=== PATIENT | male | born 1970 | race Caucasian/White ===

== ENCOUNTER → 2024-01-01 06:24 | Day surgery (SDC) | payer OTHER, SELFPAY | LOC: GI 06:24 | PROVIDERS: ATTENDING PHYSICIAN Internal Medicine | DX: Z12.11 Encounter for screening for malignant neoplasm of colon (principal); Z86.010 Personal history of colon polyps; K64.8 Other hemorrhoids; K64.4 Residual hemorrhoidal skin tags; K57.30 Diverticulosis of large intestine without perforation or abscess without bleeding; D12.3 Benign neoplasm of transverse colon | CPT/HCPCS: 45385; 88305 ==

== ENCOUNTER 2024-06-06 21:24 | Emergency (ER) | payer OTHER, SELFPAY ==
[2024-06-06 21:26] VITALS: BP 138/86
--- NOTE | 2024-06-06 22:26 | ED.GENMED ---
History of Present Illness
General
Chief Complaint: Skin Problem
Source: patient
Exam Limitations: none
Time Seen by Provider: 06/06/24 22:08
Nursing documentation reviewed up to this point in time: agreed with
History of Present Illness
History of Present Illness:
Patient to ED with complaint of pain redness and swelling to medial left thigh. Symptoms started approx 5 days ago. Denies fever/chills. No history of trauma. Brought to eD by spouse for eval
Past History
Past History
ED Past Medical History: Arrthythmia and HTN
ED Past Surgical History: Negative Brain or Cardiac
Social History
Tobacco: Non-smoker
Alcohol: None
Drug: None
Personal:
Living: with family
Employment: Employed
Family History
Family History: Hypertension
Review of Systems
Review of Systems
Allergies reviewed?: Yes
All Other Systems: ROS reviewed and negative except as documented in HPI and ROS
Constitutional: Reports no symptoms
EENT: Reports no symptoms
Respiratory: Reports no symptoms
Cardiac: Reports no symptoms
ABD/GI: Reports no symptoms
: Reports no symptoms
Musculoskeletal: Reports no symptoms
Skin: Reports other (Erythema, pain, swelling medial left thigh)
Neurological: Reports no symptoms
Psychiatric: Reports no symptoms
Phy Exam
General Physical Exam
General Presentation: well appearing and no apparent distress
General age: appears stated age
General Skin: warm and dry
General Habitus: normal
Musculoskeletal Exam
Musculoskeletal Exam: full ROM and neuro vasc intact
Skin Exam
Skin Exam: warm/dry and other (Erythema extending from left groin to distal medial thigh. Painful to touch. Cord palpated. No wounds)
Psychiatric Exam
Psychiatric Exam: normal mood/affect
Course
Orders/Labs/Results
Orders:
Orders
06/06/24 22:12
US Periph Venous LOWER Ext LT Urgent
Comment:
Reason For Exam: pain redness swelling medial left thigh
06/06/24 23:38
Complete Blood Count/With Diff Urgent
Comprehensive Metabolic Panel Urgent
06/07/24 00:01
Apixaban [Eliquis] 10 mg PO NOW STA
Abnormal Lab Results
06/06/24
23:38
RBC 4.53 L 10^6/uL
(4.70-6.10)
MCH 32.7 H pg
(27.0-31.0)
MPV 11.5 H fL
(7.4-10.4)
Absolute Monos (auto) 0.8 H 10^3/uL
(0.1-0.6)
Monocytes % 12.1 H %
(1.7-9.3)
06/06/24 23:38
06/06/24 23:38
Vital Signs
Initial and Last Documented VS:
Initial Vital Signs
Temp Pulse Resp BP Pulse Ox
98.2 F 94 22 138/86 96
06/06/24 21:26 06/06/24 21:26 06/06/24 21:26 06/06/24 21:26 06/06/24 21:26
Last Documented Vital Signs
Temp Pulse Resp BP Pulse Ox
98.2 F 94 22 138/86 96
06/06/24 21:26 06/06/24 21:26 06/06/24 21:26 06/06/24 21:26 06/06/24 21:26
*Radiology
Radiology exam reviewed: radiology read reviewed
*Pulse Oximetry
Patient hypoxic: no
*Critical Care Note
Total Time (30-74mins, 75-104mins- exclusive of procedures): Not Applicable
Update Note
Update Note:
Verbal report from night radiologist. 'Thrombus is seen throughout the left greater saphenous vein and extends within 3 mm of the saphenofemoral junction'. Due to proximity of thrombus to sophenofemoral junction will place on Eliquis. First dose
given in dept. He is discharged home and will follow up with PCP. Given instructions on s/s to return to ED and he is agreeable to plan.
ED Attending Note
-
Portions of this chart may have been created with voice recognition software.� Occasional wrong word or��sound alike� substitutions may have occurred due to the inherent limitations of voice recognition software.
Discharge Plan
Departure
Patient Disposition: Home (Routine Discharge)
Date of Disposition: 06/07/24
Time of Disposition: 00:04
Patient with high blood pressure during this ER visit?: No
Condition: Good
Covid-19: Not Applicable
Discharge Problem:
Thrombosis of left saphenous vein
Instructions: Apixaban, Deep Vein Thrombosis (DVT) ED
Prescriptions:
New
Eliquis DVT-PE Treat 30D Start 5 mg (74 tabs) tablets,dose pack
See Rx Instructions .ROUTE .COMPLEX Qty: 74 0RF
Rx Instructions:
orally per package directions
No Action
multivitamin Tablet
1 tab PO DAILY
amlodipine 5 mg Tablet
5 mg PO DAILY
losartan 100 mg Tablet
100 mg PO DAILY
acetaminophen [Tylenol Extra Strength] 500 mg tablet
1,000 mg PO Q6HPRN PRN (Reason: mild pain) Qty: 1 0RF
ibuprofen 200 mg tablet
400 - 600 mg PO Q6HPRN PRN (Reason: moderate pain) Qty: 1 0RF
oxycodone 5 mg tablet
5 mg PO Q4HPRN PRN (Reason: breakthrough/severe pain) Qty: 7 0RF
Referrals:
Federica Godoy MD [Family Provider] - Tomorrow
Activity Restrictions/Additional Instructions:
The blood clot in your leg is in a superficial vein, however it is very close to affecting the deep vein. To prevent a deep vein blood clot from forming I have prescribed Eliquis for you. YOu will take 10mg 2x day for 7 days, then 5mg daily.
Follow up with your family doctor in the AM. Return to the emergency department immediately for any SOB, CP/pressure, or for any further concerns.
Interventions
Interventions:
*Risk Screen - Suicide Last Done: 06/06/24 21:26
*General Assessment Last Done: 06/06/24 23:07
*Neglect/Abuse Screening Last Done: 06/06/24 21:26
ED- Fall Risk Assessment Last Done: 06/06/24 23:07
*ED COVID-19 Vaccine History Last Done: 06/06/24 23:07
*Nursing Disposition Last Done: 06/07/24 00:27
ED-Skin Assessment Last Done: 06/06/24 23:07
Discharge Date and Time
Discharge Date/Time: 06/07/24 00:28
Print Language: SENEGALESE
[2024-06-06 23:43] LABS: % Basophils 0.9 % (0-2); % Eosinophils 1.3 % (0-6); % Immature Granulocytes 0.3 % (0-0.5); % Lymphocytes 25.9 % (20.5-51.1); % Monocytes 12.1 % (1.7-9.3); % Neutrophils 59.5 % (42.2-75.2); Absolute Basophils 0.1 10^3/uL (0-0.2); Absolute Eosinophils 0.1 10^3/uL (0-0.7); Absolute Lymphocytes 1.7 10^3/uL (1.2-3.4); Absolute Monocytes 0.8 10^3/uL (0.1-0.6); Hematocrit 40.6 % (39.0-52.0); Hemoglobin 14.8 g/dL (13.0-18.0); Mean Corp Hgb Conc. 36.5 g/dL (33.0-37.0); Mean Corpuscular Hgb 32.7 pg (27.0-31.0); Mean Corpuscular Volume 89.6 fL (80.0-94.0); Mean Platelet Volume 11.5 fL (7.4-10.4); Nucleated Red Blood Cells % 0 % (-); Platelet Count 179 10^3/uL (130-400); Red Blood Cell Count 4.53 10^6/uL (4.70-6.10); Red Cell Dist. Width 13.8 % (11.5-14.5); White Blood Cell Count 6.7 10^3/uL (4.8-10.8)
[2024-06-07] LABS: ALT (SGPT) 25 U/L (0-50); AST (SGOT) 30 U/L (17-59); Albumin 4.1 g/dl (3.5-5.0); Alkaline Phosphatase 60 U/L (38-126); Blood Urea Nitrogen 18 mg/dl (9-20); Calcium 9.2 mg/dl (8.4-10.2); Carbon Dioxide 25 mmol/L (22-30); Chloride 105 mmol/L (98-107); Glucose 82 mg/dl (70-99); Potassium 3.7 mmol/L (3.5-5.1); Sodium 139 mmol/L (135-145); Total Bilirubin 0.7 mg/dl (0.2-1.3); Total Protein 6.5 g/dl (6.3-8.2); eGFR > 60.00
[2024-06-07] MEDS: ELIQUIS 10 MG PO (00:09)
== END 2024-06-07 00:28 | disposition home or self-care (01) ==
LOC: EMR 21:24
PROVIDERS: Nurse Practitioner; EMERGENCY PHYSICIAN Emergency Medicine; FAMILY PHYSICIAN Family Medicine
DX: I82.812 Embolism and thrombosis of superficial veins of left lower extremity (principal)
CPT/HCPCS: 99284; 80053; 85025; 93971